=== PATIENT | male | born 1955 | race Native Hawaiian/Other Pacific Islander ===

== ENCOUNTER → 2018-12-28 | Outpatient (CLI) | payer OTHER ==
--- NOTE | 2018-12-28 18:53 | CONS ---
CONSULTATION REASON FOR CONSULTATION: Sleep apnea. 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 The patient drives 45 minutes back and forth to work 5 days a week. He is on the road at 7 a.m. in the morning and he is back home at 6 p.m. He does not fall asleep while driving. He feels well and he has never been involved in a motor vehicle accident because of feeling drowsy or sleepy. He was diagnosed having obstructive sleep apnea many years back. He can recall that his sleep study was done at [facility] more than 10 years ago, and back then the patient was offered CPAP therapy. Subsequently the patient quit treatment after he underwent his coronary artery bypass surgery. He is having some occasional soft snoring. No witnessed apneas. At times it takes him around 30 minutes to fall asleep. He goes to bed around 10 p.m., wakes up at 6 a.m. in the morning. He has symptoms of prostatism and he wakes up on and off in the middle of the night to urinate. No nighttime chest pain. No nighttime shortness of breath. No nighttime heartburn. He does, however, have nocturia. He also has no symptoms of restless legs syndrome. No sleepwalking or sleeptalking. No anxiety. No depression. His current C[place] score is 2. His weight has been stable and there is no recent weight gain. In fact, the patient has lost around 10 pounds since last year. After coming back from work he walks for around an hour. Obviously exercise gets him stimulated and affects his ability to fall asleep. He sometimes has a late dinner, and this further has affected his ability in sleep initiation. He drinks a glass of red wine every night. PAST MEDICAL HISTORY: 1. Coronary artery disease with previous bypass surgery in 2004. 2. Hypertension. 3. Hyperlipidemia. 4. Obstructive sleep apnea. PAST SURGICAL HISTORY: Past surgical history includes coronary artery bypass surgery. DRUG ALLERGIES: NOT KNOWN. OUTPATIENT MEDICATION LIST: Outpatient medication list includes: 1. Aspirin 81 mg p.o. daily. 2. Norvasc 10 mg p.o. daily. 3. Losartan/hydrochlorothiazide 100/25 one tablet daily. 4. p.o. daily. 5. Coreg 25 mg p.o. daily. 6. Hydralazine 50 mg p.o. b.i.d. 7. Fish oil. 8. Centrum Silver. SOCIAL HISTORY: The patient is a nonsmoker. No history of alcoholism. No history of IV drugs. FAMILY HISTORY: Negative for sleep apnea. REVIEW OF SYSTEMS: Fourteen-point review of systems was done. Positive findings are all mentioned above in the history of present illness. No sleep paralysis. No hallucinations. No cataplexy. No history of any motor vehicle accident because of feeling drowsy or sleepy. He sleeps in his bedroom and he watches TV in his bedroom. He prefers to sleep on his side. PHYSICAL EXAMINATION: VITAL SIGNS: BP is 123/76, pulse 68, respirations 16, temperature 98.1, saturation 97% on room air. Height is 5 feet 6 inches, weight 154. BMI 24.8. Neck size is 14-3/4 inches. GENERAL APPEARANCE: Calm, comfortable. HEAD: Atraumatic, normocephalic. NECK: Supple. There is no JVD. No goiter or neck masses. The patient has Mallampati class IV. He also has micrognathia and there is an obvious overbite on today's examination. LUNGS: Clear to auscultation. HEART: Heart sounds are regular rate and rhythm. Normal S1, S2. No S3, S4. No murmurs. ABDOMEN: Soft, nontender. No organomegaly. EXTREMITIES: No edema. No cyanosis or clubbing. SKIN: Negative for any wounds or ulceration. NEUROLOGIC: Alert and oriented x3. No focal neurological deficits. PSYCHIATRIC: Negative for anxiety or depression. Skin is negative for any wounds or ulceration. IMPRESSION: 1. Sleep fragmentation with occasional delayed sleep onset and nocturnal arousals. Rule out obstructive sleep apnea. Rule out a component of mild insomnia. 2. Remote history of obstructive sleep apnea; has been off treatment for more than 10 years. 3. Hypertension. 4. Hyperlipidemia. 5. Coronary artery disease with previous bypass surgery. PLAN: The patient was instructed to implement good sleep hygiene measures. Late exercise, late food and late showers are known to disrupt the ability to initiate sleep. I asked him to do all these activities at least 2 hours before bedtime. He has already lost weight. Despite his weight loss, he has significant anatomic features with micrognathia and overbite and crowding of posterior pharynx that warrant further investigation. I do have a suspicion that the patient has some residual obstructive sleep apnea. For all these reasons, I am going to ask him to come in for a polysomnogram to assess the extent of his sleep disruption and decide if there is any need for treatment. DAHLIA / MALACHI: [id number] /
== END ==
LOC: SLEEP 14:27
PROVIDERS: ATTEND Internal Medicine Critical Care Medicine
DX: I10 Essential (primary) hypertension (principal); E78.5 Hyperlipidemia, unspecified; I25.10 Atherosclerotic heart disease of native coronary artery without angina pectoris; Z95.1 Presence of aortocoronary bypass graft; Z79.899 Other long term (current) drug therapy; Z79.82 Long term (current) use of aspirin
CPT/HCPCS: 99211

== ENCOUNTER → 2019-12-29 | Outpatient (CLI) | payer BC ==
[2019-12-29 08:46] LABS: Basophils % (A) 1 %; Eosinophils # (A) 0.4 k/uL (0-0.7); Eosinophils % (A) 7 %; HCT 42.2 % (39.0-53.0); HGB 14.5 gm/dL (13.0-17.5); Lymphocytes # (A) 1.3 k/uL (1.0-4.8); Lymphocytes % (A) 24 %; MCH 30.5 pg (25.0-35.0); MCHC 34.3 g/dL (31.0-37.0); MCV 88.7 fL (80.0-100.0); Mean Platelet Volume 7.4; Monocytes # (A) 0.3 k/uL (0-1.0); Monocytes % (A) 6 %; Neutrophils # (A) 3.2 k/uL (1.3-7.7); Neutrophils % (A) 59 %; Platelet Count 210 k/uL (150-450); RBC 4.75 m/uL (4.30-5.90); RDW 12.6 % (11.5-15.5); WBC 5.3 k/uL (3.8-10.6)
[2019-12-29 17:36] LABS: Hemoglobin A1C 5.3 % (4.0-6.0)
[2019-12-29 18:21] LABS: African American GFR (CKD) 82.4 (60.0-200.0); Albumin 4.5 g/dL (3.80-4.90); Albumin/Globulin Ratio 1.8 (1.60-3.17); Anion Gap 8.5 mmol/L (4.00-12.00); BUN/Creat Ratio 18.18 Ratio (12.00-20.00); Carbon Dioxide 28.5 mmol/L (21.6-31.8); Chol/HDL Ratio 2.89; Globulin 2.5 g/dL (1.6-3.3); Non-African American GFR(CKD) 71.1 (60.0-200.0); Potassium 3.2 mmol/L (3.5-5.5)
== END | disposition home or self-care (01) ==
LOC: LABWHC1 07:51
PROVIDERS: ATTEND Internal Medicine Cardiovascular Disease
DX: I10 Essential (primary) hypertension (principal); I52 Other heart disorders in diseases classified elsewhere
CPT/HCPCS: 36415; 80053; 80061; 83036; 85025

== ENCOUNTER 2020-09-19 09:14 | Day surgery (SDC) | payer BC ==
[2020-09-14 10:48] VITALS: BMI 22.5
[~2020-09-19 09:14] MED LIST: LACTATED RINGERS 1,000 ML IV SCH; LIDOCAINE 1% (10MG/ML) FOR IV START INTRADERMA PRN
[2020-09-19 10:02] VITALS: RESP 16; TEMP 98.1
[2020-09-19 10:11] LABS: Glucose,Whole Blood 108 mg/dL (75-99)
[2020-09-19] MEDS ORDERED: PROPOFOL 10 MG/ML 20 ML VIAL IV ONE (10:43)
--- NOTE | 2020-09-19 11:09 | P.PCN ---
Date of Procedure: 09/19/20 Procedure(s) Performed: BRIEF HISTORY: Patient is a 64-year-old pleasant s malecheduled for an elective colonoscopy as a part of evaluation of positive cologuard. PROCEDURE PERFORMED: Colonoscopy. PREOPERATIVE DIAGNOSIS: Positive cologuard IV sedation per Anesthesia. PROCEDURE: After informed consent was obtained, the patient, was brought into the endoscopy unit. IV sedation was administered by Anesthesia under continuous monitoring. Digital rectal examination was normal. Initially the Olympus CF-160 flexible video colonoscope was then inserted in the rectum, gradually advanced into thtransverse colonithout any difficulty and further advancement was not possible. Scope was removed. Pediatric colonoscope was inserted into the rectum and gently advanced into the cecum.Careful examination was performed as the scope was gradually being withdrawn. Ileocecal valve and the appendiceal abbe fice were visualized and appeared normal. Prep was fair. Irrigation was performed in the cecum because of sticky stools. Mucosa of the cecum, ascending colon, transverse colon, descending colon, sigmoid colon, and rectum appeared normal. Retroflexion was performed in the rectum and all internal hemorrhoids were seen. The patient tolerated the procedure well. IMPRESSION: Normal-appearing colon from rectum to cecum with no evidence of colorectal neoplasia. . Small internal hemorrhoids. RECOMMENDATIONS: Findings of this examination were discussed with the patient as well as his family. He was advised to have a repeat screening colonoscopy in 10 years.
[2020-09-19 11:38] VITALS: BP 146/84; PULSE 60
== END 2020-09-19 12:18 | disposition home or self-care (01) ==
LOC: ORWHC2ENDO 09:14
PROVIDERS: ATTEND Internal Medicine Gastroenterology
DX: K64.8 Other hemorrhoids (principal); R19.5 Other fecal abnormalities; I48.91 Unspecified atrial fibrillation; I10 Essential (primary) hypertension; E78.5 Hyperlipidemia, unspecified; Z95.1 Presence of aortocoronary bypass graft; Z79.82 Long term (current) use of aspirin; Z79.899 Other long term (current) drug therapy; Z91.040 Latex allergy status
CPT/HCPCS: 45378; J2704

== ENCOUNTER → 2021-02-22 | Outpatient (CLI) | payer BC ==
--- NOTE | 2021-02-23 12:40 | US ---
EXAMINATION TYPE: US bladder DATE OF EXAM: 02/22/2021 COMPARISON: NONE CLINICAL HISTORY: N18.30 Stage III chronic kidney disease. EXAM MEASUREMENTS: Post Void Residual Volume: 34 mL. Urinary retention is not evident. No suspicious masses or filling defects are evident. Wall appears symmetrical. Color Doppler performed to assess ureteral jets. Bilateral Jets seen: Yes Normal Post Void Residual (less than 50ml): Yes IMPRESSION: 1. Normal urinary bladder ultrasound.
== END | disposition home or self-care (01) ==
LOC: RADUSWWP 15:47
PROVIDERS: ATTEND Family Medicine
DX: N18.30 Chronic kidney disease, stage 3 unspecified (principal)
CPT/HCPCS: 76857

== ENCOUNTER → 2021-02-28 | Outpatient (CLI) | payer BC ==
--- NOTE | 2021-02-28 09:30 | US ---
EXAMINATION TYPE: US renal artery duplex complete DATE OF EXAM: 02/28/2021 COMPARISON: NONE CLINICAL HISTORY: 65-year-old male N18.30 STAGE 3 CKD. Controlled HTN since mid 30's per patient MEASUREMENTS: RENAL SIZE: Rt Kidney: 9.6 x 5.7 x 4.0cm Lt Kidney: 10.0 x 5.5 x 4.3cm RESISTANCE INDEX Right: 0.72 Left: 0.65 RA/AO RATIO (< 3.5 ) Right: 0.9 Left: 1.8 RA VELOCITY ( < 180 cm/s) Right: 56.0cm/s distally Left: 112.7cm/s Stockroom Keeper Comments: Aorta size is wnl with intimal wall thickening imaged distal Aorta and into Com mon Iliac Arteries. Multiple right renal cysts are seen throughout kidney with largest seen in the upper pole = 1.1 x 0.8 x 0.9cm. Shadowing calcifications seen adjacent to this cyst = 0.7 x 0.5 x 0.4cm. Vessel wall calcif ication seen mid lateral pole. Mid Right Renal Artery was obscured by overlying bowel gas. Multiple Left renal cysts are seen with largest at upper cortex = 1.5 x 1.5 x 1.4cm. Vessel wall calc ifications noted mid pole. Color Flow is noted to renal cortex bilaterally. IMPRESSION: 1. No hydronephrosis. 2. The right renal artery is limited as the midportion is obscured by bowel gas shadowing. No signifi cant renal artery stenosis along the visualized portions. Also, the presence of normal resistive therese eric within the kidneys argues against a significant renal artery stenosis. Follow up and clinically i ndicated. 3. Small renal cysts measuring up to 1.5 cm. Some scattered vascular calcifications are noted. Possib le 7 mm nonobstructive right renal calculus.
== END | disposition home or self-care (01) ==
LOC: RADUSWWP 07:02
PROVIDERS: ATTEND Family Medicine
DX: I13.10 Hypertensive heart and chronic kidney disease without heart failure, with stage 1 through stage 4 chronic kidney disease, or unspecified chronic kidney disease (principal); N18.30 Chronic kidney disease, stage 3 unspecified; N28.1 Cyst of kidney, acquired; N28.89 Other specified disorders of kidney and ureter
CPT/HCPCS: 93975

== ENCOUNTER → 2021-07-09 | Outpatient (CLI) | payer BC ==
[2021-07-09 12:18] LABS: African American GFR (CKD) 76.7 (60.0-200.0); Anion Gap 11.1 mmol/L (10.00-18.00); BUN/Creat Ratio 11.55 Ratio (12.00-20.00); Blood Urea Nitrogen 13.4 mg/dL (9.0-27.0); Calcium 8.7 mg/dL (8.7-10.3); Carbon Dioxide 29.7 mmol/L (20.0-27.5); Non-African American GFR(CKD) 66.2 (60.0-200.0); Potassium 3.5 mmol/L (3.5-5.5)
[2021-07-09 15:07] LABS: Creatinine 24 Hour,Urine 1638.9 mg/24hr (1000.0-2000.0)
[2021-07-10 02:29] LABS: Total Protein 24 Hour,Urine 5.3 mg/dL (0.0-165.0)
[2021-07-10 07:39] LABS: Creatinine 24 Hour,Urine 1.58 g/24Hr (1.00-2.00)
[2021-07-10 07:43] LABS: Total Volume 24 Hour,Urine 2700 mL
== END | disposition home or self-care (01) ==
LOC: LABWHC1 07:21
PROVIDERS: ATTEND Family Medicine
DX: I48.0 Paroxysmal atrial fibrillation (principal); E78.2 Mixed hyperlipidemia; N18.30 Chronic kidney disease, stage 3 unspecified
CPT/HCPCS: 36415; 80048; 81050; 82570; 82575; 84156